=== PATIENT | female | born 1955 | race Caucasian/White ===

== ENCOUNTER 2017-11-27 08:14 | Emergency (ER) | payer SELFPAY ==
[~2017-11-27] VITALS: Ht 157.5 cm; Wt 113.4 kg
[2017-11-27 08:19] VITALS: BP 167/91
== END 2017-11-27 09:50 | disposition admitted as inpatient to this hospital (09) ==
LOC: ERH 08:14
DX: S81.812A Laceration without foreign body, left lower leg, initial encounter (principal); W26.8XXA Contact with other sharp object(s), not elsewhere classified, initial encounter